=== PATIENT | female | born 1975 | race Caucasian/White ===

== ENCOUNTER 2022-10-26 07:55 | Outpatient (REF) | payer BC, SELFPAY ==
--- NOTE | ~2022-10-26 | XR_ITS ---
EXAMINATION: XR KNEE AP STANDING, BILATERAL XR KNEE, BILATERAL CLINICAL INFORMATION: Pain in left knee. COMPARISON: None TECHNIQUE: AP bilateral knee standing 1 view. 2 views each knee. FINDINGS: AP BILATERAL KNEE: There is mild reduction in the medial compartment joint space both knees with mild periarticular spurring. The lateral compartment joint space is preserved. No soft tissue swelling or bony erosive changes seen. RIGHT KNEE: The patellofemoral compartment joint space is preserved. There are no loose bodies, joint effusion or bony erosive changes. LEFT KNEE: There is small calcified density in the suprapatellar bursa likely a small loose body. There is reduced patellofemoral joint space with superior patellar spurring. No visible acute fracture or dislocation seen. XR/XR knee standing BI IMPRESSION: 1. Mild degenerative changes medial compartment both knees. 2. Small calcified loose body in the suprapatellar bursa left knee. 3. There is mild patellofemoral compartment degenerative changes left knee with superior patellar spurring.
--- NOTE | ~2022-10-26 | XR_ITS ---
EXAMINATION: XR KNEE AP STANDING, BILATERAL XR KNEE, BILATERAL CLINICAL INFORMATION: Pain in left knee. COMPARISON: None TECHNIQUE: AP bilateral knee standing 1 view. 2 views each knee. FINDINGS: AP BILATERAL KNEE: There is mild reduction in the medial compartment joint space both knees with mild periarticular spurring. The lateral compartment joint space is preserved. No soft tissue swelling or bony erosive changes seen. RIGHT KNEE: The patellofemoral compartment joint space is preserved. There are no loose bodies, joint effusion or bony erosive changes. LEFT KNEE: There is small calcified density in the suprapatellar bursa likely a small loose body. There is reduced patellofemoral joint space with superior patellar spurring. No visible acute fracture or dislocation seen. XR/XR knee LT 2V IMPRESSION: 1. Mild degenerative changes medial compartment both knees. 2. Small calcified loose body in the suprapatellar bursa left knee. 3. There is mild patellofemoral compartment degenerative changes left knee with superior patellar spurring.
--- NOTE | ~2022-10-26 | XR_ITS ---
EXAMINATION: XR KNEE AP STANDING, BILATERAL XR KNEE, BILATERAL CLINICAL INFORMATION: Pain in left knee. COMPARISON: None TECHNIQUE: AP bilateral knee standing 1 view. 2 views each knee. FINDINGS: AP BILATERAL KNEE: There is mild reduction in the medial compartment joint space both knees with mild periarticular spurring. The lateral compartment joint space is preserved. No soft tissue swelling or bony erosive changes seen. RIGHT KNEE: The patellofemoral compartment joint space is preserved. There are no loose bodies, joint effusion or bony erosive changes. LEFT KNEE: There is small calcified density in the suprapatellar bursa likely a small loose body. There is reduced patellofemoral joint space with superior patellar spurring. No visible acute fracture or dislocation seen. XR/XR knee RT 2V IMPRESSION: 1. Mild degenerative changes medial compartment both knees. 2. Small calcified loose body in the suprapatellar bursa left knee. 3. There is mild patellofemoral compartment degenerative changes left knee with superior patellar spurring.
== END 2022-10-26 07:56 | disposition home or self-care (01) ==
LOC: HO.HOSX 07:55
PROVIDERS: Visit Provider Physician Assistant
DX: M22.2X2 Patellofemoral disorders, left knee (principal); M22.2X1 Patellofemoral disorders, right knee
CPT/HCPCS: 73560; 73565

== ENCOUNTER 2022-12-28 10:00 | Outpatient (RCR) | payer BC, SELFPAY ==
--- NOTE | 2022-11-12 12:34 | MHC.PT.EP ---
[facility] [place] Office [place] Office [place] Office [address] Austen Jenkins [address] [phone] F: [phone] F: [phone] F: [phone] F: [phone] Physical Therapy Plan of Care Date of Evaluation: Date of Surgery: Diagnosis: B patellofemoral disorders Assessment: 47 y/o female referred to PT with B patellofemoral disorder. 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 Examination shows very quad dominant squat, good deadlift mechanics, L lateral patella tracking, increased B patella/knee pain with squats deeper than 40*/SLR, R knee swelling, decreased ITB/HS/quad length, and mild genu valgus. Recommend PT 1x/week for 6 weeks to address impairments, implement HEP, and optimize functional mobility. Frequency and Duration: The patient will be seen 1x/week for 6 weeks Short Term Goals: 3 weeks Compliant with HEP Demonstrate squat with improved alignement with knees to toes, but not over toes and pain < 3/10 Usp Goals: 6 weeks I with HEP and self management of sx Pt will be able to descend stairs with pain < 3/10 Quad set with normal patella tracking. Treatment Plan: Modalities to reduce pain, spasms and effusion. Manual therapy to restore motion and function. Therapeutic exercise to improve strength and flexibility. Neuromuscular re-education for posture and balance. Therapeutic activities to return to functional activities of daily living. Electronically signed by: Liya Ly PT Please sign and return to therapist. Thank you for your referral.
--- NOTE | 2022-12-28 11:04 | MHC.PT.DC ---
[facility] [place] Office [place] Office [place] Office [address] Austen Jenkins [address] [phone] F: [phone] F: [phone] F: [phone] F: [phone] Physical Therapy Discharge Report Diagnosis: B patellofemoral disorders Date of Surgery: Date of Evaluation: 11/12/22 Date of Discharge: 12/28/22 Treatments to Date: 7 Cancellations to Date: 0 No Shows to Date: 0 Discharge Status: Achieved Goals Improved Function Independent with HEP Discharge Summary: We reviewed all exercises and adaptations for less patella compression such as squats that are more glut focused with hips posterior verse knees over toes, discussed foot position with slight out-toeing for less joint compression as well. Pt reports good understanding and has been compliant with HEP and adaptation. She is appropriate for d/c at this time secondary to meeting goals and I with HEP. Electronically signed by: Liya Ly PT Please sign and return to therapist. Thank you for your referral.
== END 2022-12-28 11:04 | disposition home or self-care (01) ==
LOC: HO.PTCHIC 10:00
PROVIDERS: Visit Provider Physician Assistant
DX: M22.2X1 Patellofemoral disorders, right knee (principal); M22.2X2 Patellofemoral disorders, left knee
CPT/HCPCS: 97110; 97140; 97161; 97530

== ENCOUNTER 2024-03-15 09:08 | Emergency (ER) | payer BC, SELFPAY ==
--- NOTE | ~2024-03-15 | XR_ITS ---
EXAMINATION: RADIOGRAPH RIGHT ANKLE AND RIGHT FOOT CLINICAL INDICATION: Fall. COMPARISON: No similar priors. TECHNIQUE: 3 views of the right ankle and 3 views of the right foot. FINDINGS: Right ankle: No fractures or subluxation. Ankle mortise is maintained. No significant soft tissue abnormality. Right foot: Minimally displaced fractures at the base of the second, third and fourth metatarsals. Equivocal mild lateral displacement of the base of the second metatarsal with respect to the medial cuneiform. Irregularity along the medial surface of the navicular bone. Soft tissue swelling around the fracture sites. No unexpected radiopaque foreign bodies. XR/XR ankle RT 2V IMPRESSION: 1. Mildly displaced comminuted fractures at the base of the second, third and fourth metatarsals. 2. Equivocal Lisfranc injury with subtle lateral displacement of the second metatarsal with respect to the medial cuneiform. 3. Possible navicular fracture.
--- NOTE | ~2024-03-15 | XR_ITS ---
EXAMINATION: RADIOGRAPH RIGHT ANKLE AND RIGHT FOOT CLINICAL INDICATION: Fall. COMPARISON: No similar priors. TECHNIQUE: 3 views of the right ankle and 3 views of the right foot. FINDINGS: Right ankle: No fractures or subluxation. Ankle mortise is maintained. No significant soft tissue abnormality. Right foot: Minimally displaced fractures at the base of the second, third and fourth metatarsals. Equivocal mild lateral displacement of the base of the second metatarsal with respect to the medial cuneiform. Irregularity along the medial surface of the navicular bone. Soft tissue swelling around the fracture sites. No unexpected radiopaque foreign bodies. XR/XR foot RT 2V IMPRESSION: 1. Mildly displaced comminuted fractures at the base of the second, third and fourth metatarsals. 2. Equivocal Lisfranc injury with subtle lateral displacement of the second metatarsal with respect to the medial cuneiform. 3. Possible navicular fracture.
--- NOTE | ~2024-03-15 | XR_ITS ---
EXAMINATION: XR WRIST, RIGHT CLINICAL INFORMATION: Evaluate for fracture, fell yesterday. COMPARISON: None available. TECHNIQUE: Four views of the right wrist. FINDINGS: Minimally displaced distal dorsal radial fracture, best visualized on the lateral view. Nondisplaced scaphoid fracture at the level of the waist. No additional fractures. Soft tissue swelling around the wrist. No unexpected radiopaque foreign bodies. XR/XR wrist RT 2V IMPRESSION: 1. Minimally displaced distal dorsal radial fracture. 2. Nondisplaced scaphoid fracture.
[2024-03-15 09:16] VITALS: BP 139/75; PULSE 70; RESP 16; TEMP 36.4; O2SAT 99; BMI 24.3
--- NOTE | 2024-03-15 10:30 | ED_ITS ---
HPI - Extremity Problem General Chief complaint: Extremity Problem Stated complaint: R foot & R wrist injury Time Seen by Provider: 03/15/24 10:13 Source: patient Mode of arrival: ambulatory History of Present Illness HPI Narrative: 49-year-old female who arrives with complaints of right wrist/hand pain as well as right ankle/foot pain after falling yesterday down some stairs and hearing/feeling a pop and has noted swelling and bruising. Patient is taken combination analgesics prior to arrival. Related Data Previous Rx's ?Medication ?Instructions ?Recorded azithromycin 250 mg tablet See Rx Instructions PO .COMPLEX #6 01/14/23 tabs Allergies Allergy/AdvReac Type Severity Reaction Status Date / Time penicillin V Allergy Unknown hives Verified 03/15/24 09:17 Sulfa (Sulfonamide Allergy hives Verified 03/15/24 09:17 Antibiotics) Review of Systems Review of Systems: Pertinent positives and negatives as stated in HPI [facility] Past Medical History Source: nursing notes reviewed Social History Social History Patient Tobacco Use Status: Former Tobacco user Advance Directives: No Advance Directives Information Provided: No Do you have a plan to hurt others: No Plan Current occupational status: employed 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 GENERAL: Well developed, well nourished, in no acute distress. HEAD: Normocephalic/atraumatic EYES: PERRLA, EOMI LUNGS: Normal breath sounds. No adventitious sounds or accessory muscle use. SpO2<99> CARDIOVASCULAR: Regular rate and rhythm without noted murmurs ABDOMEN: Soft, non-tender, non-distended with bowel sounds. MUSCULOSKELETAL: No tenderness, deformities, or effusions noted on gross inspe ction. EXTREMITIES: No cyanosis, clubbing or edema. SKIN: Inspection of the skin reveals no rashes RIGHT FOOT: Ecchymosis noted to dorsal lateral aspect of the foot, no mid step tenderness to palpation, able to move toes, no medial/lateral malleolus tenderness to palpation but there is tenderness to palpation over base 5/4/3 metatarsal RIGHT HAND/WRIST: Swelling noted over snuffbox area, no snuffbox tenderness, tenderness over radius aspect of wrist. NEUROLOGIC: Alert and oriented x 4. Strength and sensation to light touch were grossly intact x 4. Medical Decision Making Medical Decision Making MDM Narrative: 49-year-old female and on review of x-ray imaging, there is fracture 4/3/2 metatarsal/possible navicular fracture/possible Lisfranc as well as scaphoid and right radius fracture. 1104: I discussed case with orthopedics who agrees with thumb spica, in addition, agrees with walking boot but nonweightbearing and given the fact that patient has right-sided fractures recommends walker with forearm support and if this is unsuccessful then wheelchair. Patient is otherwise discharged home with a referral to follow-up with orthopedics by calling the office tomorrow morning. Differential Diagnosis Differential Diagnoses: The differential diagnosis associated with the presentation includes Please see the discussion above Admission/Observation Consideration of admission/observation: Escalation of care including admission/observation considered Please see the discussion above Consult Healthcare Provider Management of the patient was discussed with: Occupational Health Manager Please see the discussion above Radiology Impression Discussion of test interpretation with radiology: I have reviewed the radiologist's reading. Radiologist Impression: Please see the discussion above Critical Care Time Critical Care Time Critical Care Time: Yes Total Critical Care Time: 30 Attestation: I personally attest to this time spent taking care of the patient. Discharge Plan Discharge Clinical Impression: Closed fracture of scaphoid of right wrist, Closed right radial fracture, Lisfranc dislocation, Multiple closed fractures of metatarsal bone of right foot, Foot, fracture, navicular Patient Disposition: Home, Self-Care Instructions: Wrist Fracture in Adults (ED), Foot Fracture in Adults (ED), Splint Care (ED), Walking Boot (ED) Additional Instructions: Combination analgesics Please call orthopedic office tomorrow morning. Prescriptions: No Action azithromycin 250 mg tablet See Rx Instructions PO .COMPLEX Qty: 6 0RF Rx Instructions: take 500 mg today (day 1), then 250 mg for 4 days (days 2-5) PO Referrals: Benoit Valdez MD [Physician] - Stand Alone Forms: Work/School Release Print Language: Maltese
[2024-03-15 11:02] VITALS: BP 144/74; PULSE 64; RESP 18; O2SAT 99
[2024-03-15 12:00] VITALS: TEMP 36.6
== END 2024-03-15 12:17 | disposition home or self-care (01) ==
PROVIDERS: Emergency Provider Student in an Organized Health Care Education/Training Program
DX: S62.001A Unspecified fracture of navicular [scaphoid] bone of right wrist, initial encounter for closed fracture (principal); S92.251A Displaced fracture of navicular [scaphoid] of right foot, initial encounter for closed fracture; S92.301A Fracture of unspecified metatarsal bone(s), right foot, initial encounter for closed fracture; S52.91XA Unspecified fracture of right forearm, initial encounter for closed fracture; S63.004A Unspecified dislocation of right wrist and hand, initial encounter; M25.531 Pain in right wrist; M79.671 Pain in right foot; M79.601 Pain in right arm; W10.9XXA Fall (on) (from) unspecified stairs and steps, initial encounter; Y93.9 Activity, unspecified; Y92.9 Unspecified place or not applicable; Y99.8 Other external cause status
CPT/HCPCS: 29130; 73100; 73600; 73620; 99283; 99284

== ENCOUNTER 2024-03-20 08:15 | Outpatient (AMB) | payer BC, SELFPAY ==
--- NOTE | 2024-03-20 08:24 | A.OFFVIS_ITS ---
Intake Visit Reasons: FC-Closed FC of scaphoid of RT wrist/right foot Intake Note: Gay is a 49 year old 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 female who presents today for a evaluation of her right wrist injury, DOI 03/14/24. Patient reports that she feel coming down the stairs and she heard a popping sound in her right hand. She has noted swelling and bruising. Currently still having ongoing pain in her wrist. Denies numbness and tingling her fingers. Allergies penicillin V Allergy (Unknown, Verified 03/20/24 08:25) hives Sulfa (Sulfonamide Antibiotics) Allergy (Verified 03/20/24 08:25) hives HPI HPI FC-Closed FC of scaphoid of RT wrist/right foot: Details: 49-year-old 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 female who presents to the office today for evaluation of right wrist and right foot injury after a fall downstairs and hearing a pop in her right hand, 03/14/24. She noticed swelling and bruising as well as ongoing pain in her wrist. She denies any numbness or tingling in her fingers. She also reports pain in her right foot and has been wearing a boot with benefits. 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 No open wound or abrasions. She is able make a full fist and extend all digits. No discomfort along the scaphoid region of the hand. NVI. Right wrist: Skin intact. There is no swelling, mild bruising over the distal radius with mild tenderness over the fracture site. There is no pain over the elbow, negative forearm squeeze test. She has full range of motion of the elbow. She can fully extend all digits and make a closed fist.? Pulses are present and she is neurovascularly intact. Right foot: Skin intact.? There is some bruising over the base of the metatarsals of the right foot.? Mild pain over the navucular bone. There is no tenderness at the base of the 5th metatarsal. Sensation intact.? EHL intact.? No pain along the mediolateral malleolus.? Neurovascularly intact.?? Office Procedures Casting/Splints 45049-Sqlt/Wrist Cast Application Procedure code (CPT) selection complete Fracture Care Fracture Billing Code: Fracture Billing Code Results Reviewed Results Reviewed: XR right foot and right wrist w scaphoid 03/15/24 IMPRESSION: 1. Mildly displaced comminuted fractures at the base of the second, third and fourth metatarsals. 2. Equivocal Lisfranc injury with subtle lateral displacement of the second metatarsal with respect to the medial cuneiform. 3. Possible navicular fracture. Assessment & Plan Assessment & Plan (1) Closed fracture of scaphoid of right wrist: Code(s): S62.001A - Unspecified fracture of navicular [scaphoid] bone of right wrist, initial encounter for closed fracture Category: Medical Qualifiers: Encounter type: initial encounter Scaphoid bone location: unspecified portion of scaphoid Fracture alignment: nondisplaced Qualified Code(s): S62.001A - Unspecified fracture of navicular [scaphoid] bone of right wrist, initial encounter for closed fracture (2) Foot, fracture, navicular: Code(s): S92.253A - Displaced fracture of navicular [scaphoid] of unspecified foot, initial encounter for closed fracture Category: Medical Qualifiers: Encounter type: initial encounter Fracture type: closed Fracture alignment: nondisplaced Laterality: right Qualified Code(s): S92.254A - Nondisplaced fracture of navicular [scaphoid] of right foot, initial encounter for closed fracture (3) Distal radius fracture, right: Code(s): S52.501A - Unspecified fracture of the lower end of right radius, initial encounter for closed fracture Category: Medical Qualifiers: Encounter type: initial encounter Fracture type: closed Fracture morphology: unspecified fracture morphology Qualified Code(s): S52.501A - Unspecified fracture of the lower end of right radius, initial encounter for closed fracture (4) Lisfranc's sprain: Code(s): S93.629A - Sprain of tarsometatarsal ligament of unspecified foot, initial encounter Category: Medical Qualifiers: Encounter type: initial encounter Laterality: right Qualified Code(s): S93.621A - Sprain of tarsometatarsal ligament of right foot, initial encounter (5) Fracture of metatarsal of right foot, closed: Code(s): S92.301A - Fracture of unspecified metatarsal bone(s), right foot, initial encounter for closed fracture Category: Medical Qualifiers: Encounter type: initial encounter Metatarsal bone: unspecified metatarsal Fracture alignment: nondisplaced Qualified Code(s): S92.301A - Fracture of unspecified metatarsal bone(s), right foot, initial encounter for closed fracture Plan For her right wrist, she will be placed in a thumb spica cast. She will avoid any type of lifting, pushing, pulling or carrying greater than a cellphone. I would like to see her back in 1 week with cast off, x-rays to reevaluate the scaphoid. For the right foot, she will continue with her short boot. She will weight bear as tolerated. I did explain to her that the healing takes about 4-6 to fully recover. She will remove the boot for hygiene and resting. She will see me back in 4-6 weeks for repeat x-rays of the right foot, sooner if needed. Patient Instructions: Scribed for Denisse Junior PA-C, by Dawood Guido medical staff assistant, on 03/20/2024 at 8:15 AM EST.? I, Denisse Junior PA-C, have personally reviewed and agree with the information entered by the scribe. Coding Level of Care Code Est Pt Level 4 (56340) Diagnoses Closed nondisplaced fracture of scaphoid of right wrist, unspecified portion of scaphoid, initial encounter S62.001A Encounter type: initial encounter Scaphoid bone location: unspecified portion of scaphoid Fracture alignment: nondisplaced Closed nondisplaced fracture of navicular bone of right foot, initial encounter S92.254A Encounter type: initial encounter Fracture type: closed Fracture alignment: nondisplaced Laterality: right Closed fracture of distal end of right radius, unspecified fracture morphology, initial encounter S52.501A Encounter type: initial encounter Fracture type: closed Fracture morphology: unspecified fracture morphology Sprain of ligament of tarsometatarsal joint of right foot, initial encounter S93.621A Encounter type: initial encounter Laterality: right Closed nondisplaced fracture of metatarsal bone of right foot, unspecified metatarsal, initial encounter S92.301A Encounter type: initial encounter Metatarsal bone: unspecified metatarsal Fracture alignment: nondisplaced CPT Codes Casting - CPT: 41051-Xzyd/Wrist Cast Application ([id number]) Fracture Care - Fracture Billing Code: Fracture Billing Code ([id number])
== END 2024-03-20 09:05 | disposition home or self-care (01) ==
PROVIDERS: Visit Provider Physician Assistant
DX: S62.001A Unspecified fracture of navicular [scaphoid] bone of right wrist, initial encounter for closed fracture (principal); S92.254A Nondisplaced fracture of navicular [scaphoid] of right foot, initial encounter for closed fracture; S52.501A Unspecified fracture of the lower end of right radius, initial encounter for closed fracture; S93.621A Sprain of tarsometatarsal ligament of right foot, initial encounter; S92.301A Fracture of unspecified metatarsal bone(s), right foot, initial encounter for closed fracture
CPT/HCPCS: 25622; 99214

== ENCOUNTER → 2024-03-20 08:15 | Outpatient (BNVA) | payer BC, SELFPAY | PROVIDERS: Visit Provider Physician Assistant | DX: S62.001A Unspecified fracture of navicular [scaphoid] bone of right wrist, initial encounter for closed fracture (principal); S52.501A Unspecified fracture of the lower end of right radius, initial encounter for closed fracture; S92.254A Nondisplaced fracture of navicular [scaphoid] of right foot, initial encounter for closed fracture; S92.321A Displaced fracture of second metatarsal bone, right foot, initial encounter for closed fracture; S92.331A Displaced fracture of third metatarsal bone, right foot, initial encounter for closed fracture; S92.341A Displaced fracture of fourth metatarsal bone, right foot, initial encounter for closed fracture; S93.621A Sprain of tarsometatarsal ligament of right foot, initial encounter | CPT/HCPCS: 25622 ==

== ENCOUNTER 2024-03-27 12:36 | Outpatient (REF) | payer BC, SELFPAY ==
--- NOTE | ~2024-03-27 | XR_ITS ---
EXAMINATION: XR RIGHT WRIST CLINICAL INFORMATION: Pain in right hand, cast off. COMPARISON: 03/15/2024. TECHNIQUE: 4 views of the right wrist. FINDINGS: Redemonstration of minimally displaced distal dorsal radial fracture. Fracture appears to extend to the distal articular surface. Increased sclerosis along the radial aspect of the waist of the scaphoid at the site of previously identified nondisplaced scaphoid fracture at the level of the waist. Soft tissue swelling at the wrist. XR/XR wrist RT w scaphoid IMPRESSION: 1. Redemonstration of minimally displaced distal dorsal radial fracture. Fracture appears to extend to the distal articular surface. 2. Increased sclerosis along the radial aspect of the waist of the scaphoid at the site of previously identified nondisplaced scaphoid fracture at the level of the waist.
== END 2024-03-27 12:37 | disposition home or self-care (01) ==
LOC: HO.HOSX 12:36
PROVIDERS: Visit Provider Physician Assistant
DX: S62.001D Unspecified fracture of navicular [scaphoid] bone of right wrist, subsequent encounter for fracture with routine healing (principal); S93.621D Sprain of tarsometatarsal ligament of right foot, subsequent encounter; S92.301D Fracture of unspecified metatarsal bone(s), right foot, subsequent encounter for fracture with routine healing
CPT/HCPCS: 29085; 73110

== ENCOUNTER 2024-03-27 13:56 | Outpatient (AMB) | payer BC, SELFPAY ==
[2024-03-27 14:05] VITALS: BMI 24.3
--- NOTE | 2024-03-27 14:05 | MHC.OFFVIS ---
Vital Signs 03/27/24 14:05 Height 5 ft 8 in Weight 160 lb BMI 24.3 Intake Visit Reasons: OV-f/u Rt wrist/scaphoid fx cast off w xrays Intake Note: Gay a 49 year old female who presents today for a follow up of right scaphoid fracture, DOI 03/14/24. Patient reports she is doing well, states discomfort in her wrist with removal of cast. Allergies penicillin V Allergy (Unknown, Verified 03/27/24 14:12) hives Sulfa (Sulfonamide Antibiotics) Allergy (Verified 03/27/24 14:12) hives HPI HPI OV-f/u Rt wrist/scaphoid fx cast off w xrays: Details: 49-year-old female who returns to the office today for a follow-up of right wrist fracture, 03/14/24. She states she has discomfort in her wrist with removal of cast however she is doing well otherwise. She has no other concerns today. 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 No open wound or abrasions. She is able make a full fist and extend all digits. trace discomfort along the scaphoid region of the hand. NVI. Right wrist: Skin intact. There is no swelling, mild bruising over the distal radius with mild tenderness over the fracture site. There is no pain over the elbow, negative forearm squeeze test. She has full range of motion of the elbow. She can fully extend all digits and make a closed fist.? Pulses are present and she is neurovascularly intact. Office Procedures Casting/Splints 33000-Lmvu/Wrist Cast Application Procedure code (CPT) selection complete Results Reviewed Results Reviewed: Xrays were obtained in the office today and personally reviewed by me of the right wrist w scaphoid show non displaced scaphoid fx Assessment & Plan Assessment & Plan (1) Lisfranc's sprain: Code(s): S93.629A - Sprain of tarsometatarsal ligament of unspecified foot, initial encounter Category: Medical Qualifiers: Encounter type: initial encounter Laterality: right Qualified Code(s): S93.621A - Sprain of tarsometatarsal ligament of right foot, initial encounter (2) Fracture of metatarsal of right foot, closed: Code(s): S92.301A - Fracture of unspecified metatarsal bone(s), right foot, initial encounter for closed fracture Category: Medical Qualifiers: Encounter type: initial encounter Metatarsal bone: unspecified metatarsal Fracture alignment: nondisplaced Qualified Code(s): S92.301A - Fracture of unspecified metatarsal bone(s), right foot, initial encounter for closed fracture (3) Fracture of scaphoid bone of right wrist: Code(s): S62.001A - Unspecified fracture of navicular [scaphoid] bone of right wrist, initial encounter for closed fracture Category: Medical Qualifiers: Encounter type: initial encounter Scaphoid bone location: unspecified portion of scaphoid Fracture type: closed Fracture alignment: nondisplaced Qualified Code(s): S62.001A - Unspecified fracture of navicular [scaphoid] bone of right wrist, initial encounter for closed fracture Plan She was placed in a thumb spica cast which she will wear for 6 weeks. I did educate her on a course of healing and that it typically takes about 3 months. She will avoid any type of lifting, pushing, pulling or carrying greater than a cellphone with her right hand. I would like to see her back in 6 weeks with cast off and new x-rays, sooner if needed. She will remain out of work till then. For her right foot, an MRI was ordered to further evaluate the ligamentous structures given the continued discomfort she has with ambulation. Once this is obtained, she will see us back to review and discuss the results. Orders: Orders XR wrist RT w scaphoid 03/27/24 M79.641 - Pain in right hand MR foot RT wo con 03/27/24 S93.621A - Sprain of tarsometatarsal ligament of right foot, initial encounter Patient Instructions: Scribed for Denisse Junior PA-C, by Dawood Guido medical transcription radiology, on 03/27/2024 at 2:00 PM EST.? I, Denisse Junior PA-C, have personally reviewed and agree with the information entered by the scribe. Coding Level of Care Code Global (28364) Diagnoses Sprain of ligament of tarsometatarsal joint of right foot, initial encounter S93.621A Encounter type: initial encounter Laterality: right Closed nondisplaced fracture of metatarsal bone of right foot, unspecified metatarsal, initial encounter S92.301A Encounter type: initial encounter Metatarsal bone: unspecified metatarsal Fracture alignment: nondisplaced Closed nondisplaced fracture of scaphoid of right wrist, unspecified portion of scaphoid, initial encounter S62.001A Encounter type: initial encounter Scaphoid bone location: unspecified portion of scaphoid Fracture type: closed Fracture alignment: nondisplaced CPT Codes Casting - CPT: 53523-Wtam/Wrist Cast Application ([id number])
== END 2024-03-27 14:51 | disposition home or self-care (01) ==
PROVIDERS: Visit Provider Physician Assistant
DX: S93.621A Sprain of tarsometatarsal ligament of right foot, initial encounter (principal); S92.301A Fracture of unspecified metatarsal bone(s), right foot, initial encounter for closed fracture; S62.001A Unspecified fracture of navicular [scaphoid] bone of right wrist, initial encounter for closed fracture
CPT/HCPCS: 29085; 99024

== ENCOUNTER 2024-04-08 13:45 | Outpatient (AMB) | payer BC, SELFPAY ==
--- NOTE | 2024-04-08 14:02 | A.OFFVIS_ITS ---
Intake Visit Reasons: OV- rt wrist fx - cast change Intake Note: Gay a 49 year old female who presents today for a follow up of right scaphoid fracture, DOI 03/14/24. Patient reports her cast became dirty and is requesting a cast change. Allergies penicillin V Allergy (Unknown, Verified 04/08/24 15:52) hives Sulfa (Sulfonamide Antibiotics) Allergy (Verified 04/08/24 15:52) hives Medication List - Last Reconciled 04/08/24 by Denisse Junior PA-C tramadol 50 mg PO BEDTIME 7 days walker Walker with RIGHT forearm support HPI HPI OV- rt wrist fx - cast change: Details: 49-year-old female who returns from the office today for a follow-up of right wrist fracture, 03/14/24. She presents today for a cast change as her cast got dirty. She denies any pain in her foot. She has no concerns. 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 She has mild tenderness over the distal radius and scaffold lunate. NVI. Office Procedures Casting/Splints 62366-Zalw/Wrist Cast Application Procedure code (CPT) selection complete Assessment & Plan Assessment & Plan (1) Lisfranc's sprain: Code(s): S93.629A - Sprain of tarsometatarsal ligament of unspecified foot, initial encounter Category: Medical Qualifiers: Encounter type: initial encounter Laterality: right Qualified Code(s): S93.621A - Sprain of tarsometatarsal ligament of right foot, initial encounter (2) Fracture of metatarsal of right foot, closed: Code(s): S92.301A - Fracture of unspecified metatarsal bone(s), right foot, initial encounter for closed fracture Category: Medical Qualifiers: Encounter type: initial encounter Fracture alignment: nondisplaced Metatarsal bone: unspecified metatarsal Qualified Code(s): S92.301A - Fracture of unspecified metatarsal bone(s), right foot, initial encounter for closed fracture (3) Fracture of scaphoid bone of right wrist: Code(s): S62.001A - Unspecified fracture of navicular [scaphoid] bone of right wrist, initial encounter for closed fracture Category: Medical Qualifiers: Encounter type: initial encounter Fracture alignment: nondisplaced Fracture type: closed Scaphoid bone location: unspecified portion of scaphoid Qualified Code(s): S62.001A - Unspecified fracture of navicular [scaphoid] bone of right wrist, initial encounter for closed fracture Plan She was placed back in a short arm thumb spica cast. I will see her back on her scheduled postop appointment, sooner if needed. Patient Instructions: Scribed for Denisse Junior PA-C, by Dawood Guido expert medical writer, on 04/08/2024 at 1:30 PM EST.? I, Denisse Junior PA-C, have personally reviewed and agree with the information entered by the scribe. Coding Level of Care Code Global (02454) Diagnoses Sprain of ligament of tarsometatarsal joint of right foot, initial encounter S93.621A Encounter type: initial encounter Laterality: right Closed nondisplaced fracture of metatarsal bone of right foot, unspecified metatarsal, initial encounter S92.301A Encounter type: initial encounter Fracture alignment: nondisplaced Metatarsal bone: unspecified metatarsal Closed nondisplaced fracture of scaphoid of right wrist, unspecified portion of scaphoid, initial encounter S62.001A Encounter type: initial encounter Fracture alignment: nondisplaced Fracture type: closed Scaphoid bone location: unspecified portion of scaphoid CPT Codes Casting - CPT: 44034-Fwyz/Wrist Cast Application ([id number])
== END 2024-04-08 16:08 | disposition home or self-care (01) ==
PROVIDERS: Visit Provider Physician Assistant
DX: S93.621A Sprain of tarsometatarsal ligament of right foot, initial encounter (principal); S92.301A Fracture of unspecified metatarsal bone(s), right foot, initial encounter for closed fracture; S62.001A Unspecified fracture of navicular [scaphoid] bone of right wrist, initial encounter for closed fracture
CPT/HCPCS: 29075; 99024

== ENCOUNTER → 2024-04-08 13:45 | Outpatient (BNVA) | payer BC, SELFPAY | PROVIDERS: Visit Provider Physician Assistant | DX: S62.001D Unspecified fracture of navicular [scaphoid] bone of right wrist, subsequent encounter for fracture with routine healing (principal); S93.621D Sprain of tarsometatarsal ligament of right foot, subsequent encounter; S92.301D Fracture of unspecified metatarsal bone(s), right foot, subsequent encounter for fracture with routine healing; Z46.89 Encounter for fitting and adjustment of other specified devices; X58.XXXD Exposure to other specified factors, subsequent encounter | CPT/HCPCS: 29075 ==

== ENCOUNTER 2024-04-20 18:51 | Outpatient (REF) | payer BC, SELFPAY ==
--- NOTE | ~2024-04-20 | MR_ITS ---
EXAMINATION: MR FOOT WITHOUT CONTRAST, RIGHT CLINICAL INFORMATION: Right foot pain and swelling. Injury with stairs. Question Lisfranc injury. COMPARISON: Right foot and ankle radiographs dated 03/15/2024. TECHNIQUE: Multisequence MR imaging of the right foot was obtained without contrast on a high-field strength scanner. FINDINGS: BONE AND ARTICULAR CARTILAGE: Prominent focal marrow edema at the lateral aspect of the first metatarsal base with more mild marrow edema at the adjacent lateral aspect of the medial cuneiform. No discrete fracture line; however, bony detail limited on MR examination. Comminuted fractures through the base of the second metatarsal with oblique fracture lines contacting the central aspect of the second tarsometatarsal articular surface. A proximal fracture is in the region of the Lisfranc ligament insertion, which is heterogeneous and attenuated, consistent with acute grade 2 sprain/partial tear. The fracture gap appears to measure up to 0.4 cm in greatest dimension. Prominent associated marrow edema. More mild marrow edema within the medial cuneiform without a definite fracture line. Mildly displaced, oblique fracture through the medial/plantar base of the third metatarsal with cortical step off appearing to measure up to 0.3 cm and the fracture line contacting the third tarsometatarsal articular surface. Nondisplaced, oblique fracture through the base of the fourth metatarsal with extension to the central aspect of the fourth tarsometatarsal articular surface. No significant cortical step off. Patchy marrow edema within the cuboid, consistent with osseous contusions. First metatarsophalangeal articular cartilage thinning with small marginal osteophytes. Similar findings of the hallux sesamoids. No concerning lytic or blastic osseous lesion. TENDONS: The visualized flexor and extensor tendons are intact. No transverse tendon tear or tendon retraction. LIGAMENTS: Attenuation and increased T2 signal throughout the Lisfranc ligament consistent with acute grade 2 sprain/partial tear. Intact plantar plates. JOINT FLUID AND SOFT TISSUES: Prominent dorsal subcutaneous edema. Circumferential soft tissue edema adjacent to the metatarsal fractures. No soft tissue mass or organized fluid collection. No forefoot neuroma. PLANTAR FASCIA: The distal plantar fascia is intact. No measurable tear. MR/MR foot RT wo con IMPRESSION: 1. Comminuted and displaced fractures through the bases of the second and third metatarsals contacting the tarsometatarsal joints with a nondisplaced, comminuted fracture the base of the fourth metatarsal. Additional areas of patchy marrow edema within the base of the first metatarsal as well as the cuneiforms and cuboid without additional fracture line. Bone detail limited on MR examination. 2. Acute grade 2 sprain/partial tear of the Lisfranc ligament. 3. Prominent dorsal subcutaneous edema. No soft tissue mass or organized fluid collection. 4. 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
== END 2024-04-20 18:52 | disposition home or self-care (01) ==
LOC: HO.MRI 18:51
PROVIDERS: Visit Provider Physician Assistant
DX: S93.621A Sprain of tarsometatarsal ligament of right foot, initial encounter (principal)
CPT/HCPCS: 73718

== ENCOUNTER 2024-05-08 08:30 | Outpatient (REF) | payer BC, SELFPAY ==
--- NOTE | ~2024-05-08 | XR_ITS ---
EXAMINATION: XR RIGHT WRIST CLINICAL INFORMATION: Pain in right hand, cast off. COMPARISON: Right wrist radiograph 03/27/2024 TECHNIQUE: 4 views of the right wrist. FINDINGS: Minimally displaced distal dorsal radius fracture line is slightly less conspicuous suggesting interval healing. Again noted increased sclerosis along the radial aspect of the waist of the scaphoid at the site of the previously identified nondisplaced fracture. No new fractures identified. Minimal soft tissue swelling of the wrist XR/XR wrist RT w scaphoid IMPRESSION: 1. Interval healing of minimally displaced distal dorsal radius fracture with slightly less conspicuous fracture line 2. Redemonstrated increased sclerosis along the radial aspect of the waist of the scaphoid at the site of previously identified nondisplaced fracture.
--- NOTE | ~2024-05-08 | XR_ITS ---
EXAMINATION: XR FOOT, RIGHT CLINICAL INFORMATION: Displaced fracture, second and third metatarsal bones right foot. COMPARISON: MR April 20, 2024, x-ray March 15, 2024. TECHNIQUE: AP, lateral, and oblique views of the right foot. FINDINGS: Moderate degenerative changes first metatarsophalangeal joint. Comminuted, displaced fractures through the bases of the second and third metatarsals and nondisplaced, comminuted fracture of the base of the fourth metatarsal were better characterized on MRI of April 20, 2024. Fracture lines are less conspicuous, suggesting some interval bony bridging callus formation. There is adjacent soft tissue swelling. Previously described irregularity along the medial surface of the navicular bone is difficult to assess on the current exam due to overlapping bony structures. XR/XR foot RT min 3V IMPRESSION: 1. Comminuted, displaced fractures through the bases of the second and third metatarsals and nondisplaced, comminuted fracture of the base of the fourth metatarsal were better characterized on MRI of April 20, 2024. Fracture lines are less conspicuous, suggesting some interval bony bridging callus formation. 2. Previously described irregularity along the medial surface of the navicular bone is difficult to assess on the current exam due to overlapping bony structures.
== END 2024-05-08 08:31 | disposition home or self-care (01) ==
LOC: HO.HOSX 08:30
PROVIDERS: Visit Provider Physician Assistant
DX: S62.001D Unspecified fracture of navicular [scaphoid] bone of right wrist, subsequent encounter for fracture with routine healing (principal); S93.621D Sprain of tarsometatarsal ligament of right foot, subsequent encounter; S93.601D Unspecified sprain of right foot, subsequent encounter
CPT/HCPCS: 29085; 73110; 73630

== ENCOUNTER 2024-05-08 11:08 | Outpatient (AMB) | payer BC, SELFPAY ==
--- NOTE | 2024-05-08 11:42 | A.OFFVIS_ITS ---
Vital Signs 05/08/24 11:46 Height 5 ft 8 in Weight 170 lb BMI 25.8 Handedness Right Intake Visit Reasons: OV-f/u Rt wrist/scaphoid fx cast off w xrays Intake Note: Gay is a 49 year old 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 female who presents today for a follow up of right scaphoid fracture, DOI 03/14/24. Xrays updated and cast removed. Patient reports her right hand feels like it is doing okay, certain range of motion does cause her discomfort but otherwise no concerns. Denies numbness and tingling. Allergies penicillin V Allergy (Unknown, Verified 05/08/24 11:48) hives Sulfa (Sulfonamide Antibiotics) Allergy (Verified 05/08/24 11:48) hives HPI HPI OV-f/u Rt wrist/scaphoid fx cast off w xrays: Details: 49-year-old 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 female who returns to the office today for a follow-up of right wrist fracture, 03/14/24. She reports she has improvement in her symptoms however she does experiences discomfort with ROM. She denies any numbness or tingling. 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 She has mild tenderness over the distal radius and scaffold lunate. NVI. Right wrist: Skin intact. There is no swelling or bruising over the distal radius with mild tenderness over the fracture site. There is no pain over the elbow, negative forearm squeeze test. She has full range of motion of the elbow. She can fully extend all digits and make a closed fist.? Pulses are present and she is neurovascularly intact. Office Procedures Casting/Splints 54920-Ncoj/Wrist Cast Application Procedure code (CPT) selection complete Results Reviewed Results Reviewed: Xrays were obtained in the office today and personally reviewed by me of the right wrist w scaphoid show non displaced scaphoid fx with interval healing Xrays were obtained in the office today and personally reviewed by me of the right foot show stable fx pattern Assessment & Plan Assessment & Plan (1) Mai's sprain: Code(s): S93.629A - Sprain of tarsometatarsal ligament of unspecified foot, initial encounter Category: Medical Qualifiers: Encounter type: subsequent encounter Laterality: right Qualified Code(s): S93.621D - Sprain of tarsometatarsal ligament of right foot, subsequent encounter (2) Right foot sprain: Code(s): S93.601A - Unspecified sprain of right foot, initial encounter Category: Medical Qualifiers: Encounter type: subsequent encounter Qualified Code(s): S93.601D - Uns pecified sprain of right foot, subsequent encounter Plan For her right foot, she will transition to regular street shoe at home in a controlled environment and wear the boot when she is out weight bearing as tolerated. She will begin a course of physical therapy to work on ROM and strength training. For her right wrist she was placed back in a short arm thumb spica cast which she will wear for 6 weeks until she has full healing of the scaphoid fracture. She will avoid lifting objects more than a cellphone. I would like to see her ba ck in 6 weeks with x-rays of her right wrist with scaphoid, sooner if needed. Orders: Orders PT Evaluation and Treatment Today S93.601A - Unspecified sprain of right foot, initial encounter, S93.621A - Sprain of tarsometatarsal ligament of right foot, initial encounter XR foot RT min 3V Today S92.351A - Displaced fracture of fifth metatarsal bone, right foot, initial encounter for closed fracture XR wrist RT w scaphoid Today M79.641 - Pain in right hand Patient Instructions: Scribed for Denisse Junior PA-C, by Dawood Guido medical administrative specialist, on 05/08/2024 at 11:15 AM EST.? I, Denisse Junior PA-C, have personally reviewed and agree with the information entered by the scribe. Coding Level of Care Code Global (77932) Diagnoses Sprain of ligament of tarsometatarsal joint of right foot, subsequent encounter S93.621D Encounter type: subsequent encounter Laterality: right Sprain of right foot, subsequent encounter S93.601D Encounter type: subsequent encounter CPT Codes Casting - CPT: 15456-Oihw/Wrist Cast Application ([id number])
[2024-05-08 11:46] VITALS: BMI 25.8
== END 2024-05-08 12:27 | disposition home or self-care (01) ==
PROVIDERS: Visit Provider Physician Assistant
DX: S62.001D Unspecified fracture of navicular [scaphoid] bone of right wrist, subsequent encounter for fracture with routine healing (principal); S93.601D Unspecified sprain of right foot, subsequent encounter
CPT/HCPCS: 29085; 99024

== ENCOUNTER 2024-06-01 09:35 | Outpatient (REF) | payer BC, SELFPAY ==
--- NOTE | ~2024-06-01 | XR_ITS ---
EXAMINATION: Right wrist x-rays CLINICAL INFORMATION: Pain in the right hand COMPARISON: Multiple prior radiographs most recent 05/08/2024 TECHNIQUE: 3 views of the right wrist FINDINGS: Horizontal linear sclerosis along the distal radius in the area the previously noted fracture. Fracture slightly less conspicuous compared to prior. Findings compatible with continued distal radius fracture healing. Scaphoid: Sclerosis noted along the waist of the scaphoid compatible with a bone island. Fracture line not visualized. Remaining bone and joints unremarkable. XR/XR wrist RT w scaphoid IMPRESSION: RIGHT WRIST: Continued healing of distal radius fracture.
== END 2024-06-01 09:36 | disposition home or self-care (01) ==
LOC: HO.HOSX 09:35
PROVIDERS: Visit Provider Physician Assistant
DX: S92.001D Unspecified fracture of right calcaneus, subsequent encounter for fracture with routine healing (principal)
CPT/HCPCS: 29085; 73110

== ENCOUNTER 2024-06-01 11:17 | Outpatient (AMB) | payer BC, SELFPAY ==
--- NOTE | 2024-06-01 11:40 | MHC.OFFVIS ---
Vital Signs 06/01/24 11:43 Height 5 ft 8 in Weight 170 lb BMI 25.8 Intake Visit Reasons: OV- Rt wrist/scaphoid fx cast change Allergies penicillin V Allergy (Unknown, Verified 05/08/24 11:48) hives Sulfa (Sulfonamide Antibiotics) Allergy (Verified 05/08/24 11:48) hives HPI HPI OV- Rt wrist/scaphoid fx cast change: Details: Gay is a 49-year-old female who presents today for a right wrist/scaphoid fracture. She is here for a cast change. She states she is doing well. 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 Review of Systems Const All systems reviewed & are unremarkable except as noted in HPI and below Physical Exam Vital Signs: BMI result Body Mass Index 25.8 Const General: cooperative, healthy appearing, comfortable and no acute distress Orientation/consciousness: patient oriented x3 Neck Neck: Yes normal visual inspection and Yes no JVD Chest Chest palpation & inspection: normal inspection of the chest Resp Effort & Inspection: normal respiratory effort Auscultation: clear to auscultation bilaterally, crackles (no), rales (no), rhonchi (no) and wheezes (no) Cardio Jugular venous distension: no JVD Rate: regular rate Rhythm: regular rhythm Heart sounds: S1 normal heart sound present, S2 normal heart sound present, Murmur heart sound present (no) and Rub heart sound present (no) Neuro General: patient oriented x3 Extrem Other: Right wrist: Normal to inspection. She has mild tenderness over the distal radius and scaffold lunate. NVI. Right wrist: Skin intact. There is no swelling or bruising over the distal radius with mild tenderness over the fracture site. There is no pain over the elbow, negative forearm squeeze test. She has full range of motion of the elbow. She can fully extend all digits and make a closed fist.? Pulses are present and she is neurovascularly intact. General: Yes normal to inspection, Yes no pedal edema and Yes no calf tenderness Office Procedures Casting/Splints 20631-Lxia/Wrist Cast Application Procedure code (CPT) selection complete Assessment & Plan Assessment & Plan (1) Fracture of scaphoid bone of right wrist: Code(s): S62.001A - Unspecified fracture of navicular [scaphoid] bone of right wrist, initial encounter for closed fracture Category: Medical Qualifiers: Encounter type: initial encounter Scaphoid bone location: unspecified portion of scaphoid Fracture type: closed Fracture alignment: nondisplaced Qualified Code(s): S62.001A - Unspecified fracture of navicular [scaphoid] bone of right wrist, initial encounter for closed fracture Plan She was placed back in a short arm thumb Spica cast. Advised her to not lifting more than a cell phone. She will see us back at her routine scheduled appointment. Orders: Orders XR wrist RT w scaphoid Today M79.641 - Pain in right hand Patient Instructions: Scribed for Denisse Junior PA-C, by Renea Reina medical parasitologist, on 06/01/2024 at 11:30 AM EST. IDenisse PA-C, have personally reviewed and agree with the information entered by the scribe. Coding Level of Care Code Global (46444) Diagnoses Closed nondisplaced fracture of scaphoid of right wrist, unspecified portion of scaphoid, initial encounter S62.001A Encounter type: initial encounter Scaphoid bone location: unspecified portion of scaphoid Fracture type: closed Fracture alignment: nondisplaced CPT Codes Casting - CPT: 54053-Wqbk/Wrist Cast Application ([id number])
[2024-06-01 11:43] VITALS: BMI 25.8
== END 2024-06-01 13:39 | disposition home or self-care (01) ==
PROVIDERS: Visit Provider Physician Assistant
DX: S62.001A Unspecified fracture of navicular [scaphoid] bone of right wrist, initial encounter for closed fracture (principal)
CPT/HCPCS: 29085; 99024

== ENCOUNTER 2024-06-18 12:33 | Outpatient (REF) | payer BC, SELFPAY ==
--- NOTE | ~2024-06-18 | XR_ITS ---
EXAMINATION: XR WRIST, RIGHT CLINICAL INFORMATION: Pain right hand, cast off. COMPARISON: 05/02/2024, 06/01/2024. TECHNIQUE: Four views of the right wrist. FINDINGS: Redemonstration of sclerosis along the waist of the scaphoid characteristic of a bone island. Discrete fracture line is not appreciated. Redemonstration of healing minimally displaced distal radial fracture. Fracture line is still visible, but less conspicuous. XR/XR wrist RT w scaphoid IMPRESSION: 1. Healing distal radial fracture. 2. Redemonstration of sclerosis along the waist of the scaphoid characteristic of a bone island. Discrete fracture line is not appreciated. Electronically signed by: Malini Ortiz MD 07/15/2024 10:38 AM EDT
== END 2024-06-18 12:34 | disposition home or self-care (01) ==
LOC: HO.HOSX 12:33
PROVIDERS: Visit Provider Physician Assistant
DX: M79.641 Pain in right hand (principal)
CPT/HCPCS: 73110

== ENCOUNTER 2024-06-18 12:43 | Outpatient (AMB) | payer BC, SELFPAY ==
--- NOTE | 2024-06-18 12:47 | A.OFFVIS_ITS ---
Intake Visit Reasons: OV-6 wk f/u Rt wrist/scaphoid fx cast off w xrays Intake Note: Gay is a 49 year old female who presents today for a follow up of right scaphoid fracture, DOI 03/14/24. Cast off and xrays updated. Patient reports she is doing well, denies any pain. States no concerns today. Allergies penicillin V Allergy (Unknown, Verified 06/18/24 12:49) hives Sulfa (Sulfonamide Antibiotics) Allergy (Verified 06/18/24 12:49) hives Medication List - Last Reconciled 06/18/24 by Denisse Junior PA-C No Known Home Meds HPI HPI OV-6 wk f/u Rt wrist/scaphoid fx cast off w xrays: Details: 49-year-old female who returns to the office today for a follow-up of right wrist fracture, 03/14/24. She states she has no pain and is doing well overall. She has no concerns today. 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 Review of Systems Const All systems reviewed & are unremarkable except as noted in HPI and below Physical Exam Const General: cooperative, healthy appearing, comfortable and no acute distress Orientation/consciousness: patient oriented x3 Neck Neck: Yes normal visual inspection and Yes no JVD Chest Chest palpation & inspection: normal inspection of the chest Resp Effort & Inspection: normal respiratory effort Auscultation: clear to auscultation bilaterally, crackles (no), rales (no), rhonchi (no) and wheezes (no) Cardio Jugular venous distension: no JVD Rate: regular rate Rhythm: regular rhythm Heart sounds: S1 normal heart sound present, S2 normal heart sound present, Murmur heart sound present (no) and Rub heart sound present (no) Neuro General: patient oriented x3 Extrem Other: Right wrist: Skin intact. There is no swelling or bruising over the distal radius with no tenderness over the fracture site. There is no pain over the elbow, negative forearm squeeze test. She has full range of motion of the elbow. She can fully extend all digits and make a closed fist.? Pulses are present and she is neurovascularly intact. General: Yes normal to inspection, Yes no pedal edema and Yes no calf tenderness Results Reviewed Results Reviewed: Xrays were obtained in the office today and personally reviewed by me of the right wrist w scaphoid show non displaced scaphoid fx with interval healing Assessment & Plan Assessment & Plan (1) Fracture of scaphoid bone of right wrist: Code(s): S62.001A - Unspecified fracture of navicular [scaphoid] bone of right wrist, initial encounter for closed fracture Category: Medical Qualifiers: Encounter type: initial encounter Fracture alignment: nondisplaced Fracture type: closed Scaphoid bone location: unspecified portion of scaphoid Qualified Code(s): S62.001A - Unspecified fracture of navicular [scaphoid] bone of right wrist, initial encounter for closed fracture Plan She was transitioned to a Velcro thumb spica splint which she will wear with activities only. She will avoid lifting anything more than a cellphone. 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 She will see me back as needed. Orders: Orders XR wrist RT w scaphoid Today M79.641 - Pain in right hand Patient Instructions: Scribed for Denisse Junior PA-C, by Dawood Guido medical director of hospice, on 06/18/2024 at 12:45 PM EST.? I, Denisse Junior PA-C, have personally reviewed and agree with the information entered by the scribe. Coding Level of Care Code Est Pt Level 3 (87511) Diagnoses Closed nondisplaced fracture of scaphoid of right wrist, unspecified portion of scaphoid, initial encounter S62.001A Encounter type: initial encounter Fracture alignment: nondisplaced Fracture type: closed Scaphoid bone location: unspecified portion of scaphoid
== END 2024-06-18 14:04 | disposition home or self-care (01) ==
PROVIDERS: Visit Provider Physician Assistant
DX: S62.001A Unspecified fracture of navicular [scaphoid] bone of right wrist, initial encounter for closed fracture (principal)
CPT/HCPCS: 99024

== ENCOUNTER 2024-12-22 11:56 | Outpatient (AMB) | payer BC, SELFPAY ==
[2024-12-22 12:19] VITALS: BP 130/80; PULSE 70; TEMP 36.6; O2SAT 100; BMI 25.8
--- NOTE | 2024-12-22 12:19 | AM.OFFWIN_ITS ---
Intake Vital Signs 12/22/24 12:19 Height 5 ft 8 in Weight 170 lb BMI 25.8 BP 130/80 Blood Pressure Location Lt brachial Position Sitting Pulse 70 Pulse Source Pulse Oximeter Temp 97.9 F Temp Source Oral Pulse Oximetry (%) 100 Oxygen Delivery Method Room Air Intake Visit Reasons: EP ? sinus infection Patient Tobacco Use Status: Former Tobacco user Allergies penicillin V Allergy (Unknown, Verified 12/22/24 12:19) hives Sulfa (Sulfonamide Antibiotics) Allergy (Verified 12/22/24 12:19) hives Do you need a note to return to daycare/school/sports/work: No HPI HPI Comments History of Present Illness Details History - The patient is a 49-year-old female pr esenting with symptoms of sinusitis that have persisted for ten days. - Initial management with decongestants was attempted; however, symptoms including sinus pain and nasal congestion have not resolved. - The patient reports thick yellow nasal discharge indicating possible bacterial infection. - Despite experiencing mild night sweats , no significant fever has been noted. - Fatigue is persistent and was preceded by viral illness symptoms such as body aches. - She is unable to tolerate nasal sprays due to induced nausea and has an allergy to penicillin leading to a need for alternative treatment options. Physical Exam General: Cooperative, healthy appearing, comfortable and no acute distress Orientation/consciousness: Patient oriented x3 Limitations: No limitations Head: Normal to inspection Ears: Hearing grossly normal bilaterally, external ears normal, TMs with fluid bilaterally Nose: Normal external nose present, Normal nares present Face and sinus: Normal facial exam, sinuses TTP ethmoid bilat Mouth: Normal oral and palatal mucosa present and moist mucous membranes Throat: Yes tonsils normal, Yes uvula midline. Posterior oropharynx erythema Eyes: Appearance normal, both eyes and all related structures Neck: Normal visual inspection Respiratory: Normal respiratory effort, able to speak in complete sentences, no respiratory distress, not tachypneic, no tripod positioning and no use of accessory muscles Skin: No rashes or lesions noted Neuro: Patient oriented x3 Extremities: Normal to inspection and Yes no clubbing, cyanosis or edema [facility] Medical History Fracture of scaphoid bone of right wrist Social History (Updated 06/18/24 @ 12:50 by Suzette Cordon A) Alcohol intake: current Alcohol intake frequency: holidays/special occasions only Patient Tobacco Use Status: Former Tobacco user Current occupational status: employed 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, 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 Review of Systems Const All systems reviewed & are unremarkable except as noted in HPI and below Physical Exam Vital Signs: Last Vital Signs Temp 97.9 F 12/22/24 12:19 Pulse 70 12/22/24 12:19 BP 130/80 12/22/24 12:19 Pulse Ox 100 12/22/24 12:19 Oxygen Delivery Method Room Air 12/22/24 12:19 BMI result Body Mass Index 25.8 Assessment & Plan Assessment & Plan (1) Sinusitis, acute: Code(s): J01.90 - Acute sinusitis, unspecified Qualifiers: Sinusitis location: ethmoidal Recurrence: non-recurrent Qualified Code(s): J01.20 - Acute ethmoidal sinusitis, unspecified Plan: Management includes cefuroxime 500 mg PO BID for 7 days due to acute sinusitis and the patient's penicillin allergy. The patient is advised to use Benadryl at night and obtained instructions for safe saline nasal rinses. Flonase is contraindicated due to adverse reactions. The prescription arrangements have been completed with no additional documentation required for employment. Patient was informed and verbally consented to the use of an ambient scribe for clinic note documentation during this visit Medications: New cefuroxime axetil 500 mg PO Q12H 14 tabs 0RF Coding Level of Care Code New Pt Level 3 (41624) Diagnoses Acute non-recurrent ethmoidal sinusitis J01.20 Sinusitis location: ethmoidal Recurrence: non-recurrent
--- OUTSIDE RECORDS SUMMARY | 2024-12-22 13:06 | XMS_ITS | Clinical Summary ---
Author Organization [facility] it Address [address] [place] [address] Care Team Providers Care Manager Cost Name Role Phone Prashanth Engel MD Primary Care Pr ovider Allergies Active Allergy Reactions Criticality Noted Date Comments Levofloxacin 08/11/2018 Other Reaction(s): Hives/Urticaria Penicillins Anaphylaxis High 01/01/2007 Other Reaction(s): Hives/Urticaria Sulfa (Sulfonamide Antibiotics) 05/13/2023 Immunizations Name Administration Dates Next Due Hepatitis B (Dpaintt-C-Slata , Recombivax HB-Adult) 19yo and older 07/24/2017,02/13/2017,01/16/2017 Influenza Quadravalent, MDCK , 0.5ml, with preservative (Flucelvax) 6mo and older 07/28/2018 PPD Test 07/30/2018 Tdap Tetanus diptheria acell ular pertussis (Boostrix; Adacel) 7yo and older 01/10/2017,01/21/2007 Tetanus Toxoid, Unspecified 12/14/2016 Surgical History Surgery Date Site/Laterality Comments TUBAL LIGATION PROCEDURE: HISTORICAL TUBAL LIGATION OTHER SURGICAL HISTORY 11/15/2017 PROCEDURE: HYSTEROSCOPY, SURGICAL/LYSIS,LESION; COMMENT: submucosal fibroid - benign for AUB BREAST BIOPSY 2014 Right PROCEDURE: BX BREAST; PERC NEEDLE CORE W/IMAG GUID; COMMENT: b9 COLONOSCOPY 03/08/2022 PROCEDURE: HISTORICAL COLONOSCOPY; COMMENT: tiny hyperplastic polyp and diverticulosis Medical History Medical History Date Comments Abnormal mammogram DX:Abnormal m ammogram; COMMENT: tagged area of right breast at [facility] 2015, benign bx Family History Medical History Relation Name Comments No Known Problems Brother 1 No Known Problems Brother 2 No Known Problems Daughter Alexxis Prostate cancer Father No Known Problems Maternal Grandfather di ed from pneumonia at prison Hypertension Maternal Grandmother hyperch olesterol Heart attack Mother CVA, CAD, colon polyps Colon cancer Paternal Grandfather Breast cancer Paternal Grandmother 50s No Known Problems Sister No Known Problems Son Balise Blindness Neg Hx Cataracts Neg Hx Colon cancer Neg Hx Glaucoma Neg Hx Kidney cancer Neg Hx Macular degeneration Neg Hx Ovarian cancer Neg Hx Strabismus Neg Hx Uterine cancer Neg Hx Relation Name Status Comments Brother 1 Alive Brother 2 Alive Daughter Alexxis Alive Father Alive Maternal Grandfather Maternal Grandmother Mother Alive Paternal Grandfather Paternal Grandmother 50s Sister Alive Son Balise Alive Social History Tobacco Use Types Packs/Day Years Used Date Smoking Tobacco: Former Cigarettes Q uit: 01/21/1995 Smokeless Tobacco: Never Alcohol Use Standard Drinks/Week Comments Yes 0 (1 standard drink = 0.6 oz pur e alcohol) Comments Unknown Sex and Gender Information Value Date Recorded Sex Assigned at Not on file Legal Sex Female 9:35 AM EST Gender Identity Not on file Sexual Orientation Not on file Obstetrics History Last Filed Vital Signs Vital Sign Reading Time Taken Comments Blood Pressure 117/78 11/18/2023 11:51 AM EST Pulse 89 11/18/2023 11:51 AM EST Temperature - - Respiratory Rate - - Oxygen Saturation - - Inhaled Oxygen Concentration - - Weight 76 kg (167 lb 9.6 oz) 11/18/2023 11:51 AM EST Height 172.7 cm (5' 8 ) 11/18/2023 11:51 AM EST Body Mass Index 25.48 11/18/2023 11:51 AM EST Plan of Treatment Upcoming Encounters Date Type Department Care Team (Late st Contact Info) Description 08/26/2025 8:30 AM EDT Appointment Radiology Department - [address] [phone] Health Maintenance Due Date Last Done Comments Depression Screening 10/13/2022 HIV Screening 10/13/2022 Social Influencers of Health Screening 10/13/2022 Pneumococcal Vaccine: 50+ Years (1 of 1 - PCV) 2023 Zoster Vaccines (1 of 2) 2023 COVID-19 Vaccine ( season) 2024 11/24/2020, 11/03/2020 Influenza Vaccine (#1) 2024 07/28/2018 Breast Cancer Screening 08/07/2026 08/07/20, 08/07/2024, 07/29/2023, Additional history exists DTaP,Tdap,and Td Vaccines (3 - Td or Tdap) 01/10/2027 01/10/2017, 01/21/2007 Cholesterol Screening (Lipid Panel) 05/15/2028 05/15/2023 Cervical Cancer Screening: HPV 11/18/2028 11/18/2023 Colorectal Cancer Screening: Colonoscopy 03/08/2032 03/08/2022 Hepatitis B Vaccines Completed 07/24/2017, 02/13/2017, 01/16/2017 Hepatitis C Screening Completed 05/15/2023 HIB Vaccines Aged Out No longer eligi ble based on patient's age to complete this topic HPV Vaccines Aged Out No longer eligi ble based on patient's age to complete this topic Hepatitis A Vaccines Aged Out No long er eligible based on patient's age to complete this topic IPV Vaccines Aged Out No longer eligi ble based on patient's age to complete this topic MMR Vaccines Aged Out No longer eligi ble based on patient's age to complete this topic Meningococcal ACWY Vaccine Aged Out N o longer eligible based on patient's age to complete this topic Meningococcal B Vacine Aged Out No lo nger eligible based on patient's age to complete this topic Pneumococcal Vaccine: Pediatrics (0 to 5 Years) and At-Risk Patients (6 to 64 Years) Aged Out No longer eligible based on patient's age to complete this topic RSV Immunization Patients Under 20 months Aged Out No longer eligible based on patient's age to complete this topic Varicella Vaccines Aged Out No longer eligible based on patient's age to complete this topic Procedures Procedure Name Priority Date/Time Associated Diagnosis Comments SCREENING MAMMOGRAPHY BI 2-VIEW BREAST INC CAD Routine 08/07/2024 10:13 AM EDT Encounter for screening mammogram for malignant neoplasm of breast HPV Routine 11/18/2023 HEPATITIS C SCREENING Routine 05/15/2023 LIPID PANEL Routine 05/15/2023 HM COLONOSCOPY Routine 03/08/2022 from Last 3 Months or Most Recently Relevant to Health Maintenance Results * SCREENING MAMMOGRAPHY BI 2-VIEW BREAST INC CAD (08/07/2024 10:13 AM EDT) Anatomical Region Laterality Modality Radiographic Gaye ging 07/29/2023 10:4 2 AM EDT Narrative 08/07/2024 11:35 AM EDT This is a summary report. The complete report is available in the patient's medical record. If you cannot access the medical record, please contact the sending organization for a detailed fax or copy. Bilateral screening mammography: Bilateral digital tomosynthesis mammography was reviewed with computer aided detection and compared to previous. ??The breast tissue remains heterogeneously dense, limiting the sensitivity of mammography. ??There is a pair of nodular densities in the retroareolar right breast centered slightly above and lateral to the nipple. ??These were not present on the most recent prior mammograms. ??We will contact the patient to return for a limited right breast ultrasound for further evaluation. ??There have been no other significant interval changes. Impression: New nodular densities on the right. BI-RADS Category 0, needs additional imaging evaluation. Breast density: The breasts are heterogeneously dense, which may obscure small masses. Location: [facility], [address] [place] [address], [id number], [phone] Procedure Note Jcarlos Villarreal MD - 09/28/2024 This is a summary report. The complete report is available in thepatient's medical record. If you cannot access the medical record, pleasecontact the sending organization for a detailed fax or copy. Bilateral screening mammography: Bilateral digital tomosynthesismammography was reviewed with computer aided detection and compared toprevious. The breast tissue remains heterogeneously dense, limiting thesensitivity of mammography. There is a pair of nodular densities in theretroareolar right breast centered slightly above and lateral to thenipple. These were not present on the most recent prior mammograms. Wewill contact the patient to return for a limited right breast ultrasoundfor further evaluation. There have been no other significant intervalchanges. Impression: New nodular densities on the right. BI-RADS Category 0, needs additional imaging evaluation. Breast density: The breasts are heterogeneously dense, which may obscuresmall masses. Location: [facility], [address] [place] [address], [id number], [phone] Result [facility] Prashanth Engel MD IMG XR PROCEDURE S Final Result * Cervical Cancer Screening: HPV (11/18/2023) [facility] Cervical Cancer Screening: HPV Negative, Abstracted Result [facility] Provider HEALTH MAINTENANCE Final Result * Hepatitis C Screening (05/15/2023) [facility] Hepatitis C Screening Abstracted Result [facility] Provider HEALTH MAINTENANCE Final Result * (ABNORMAL) Lipid panel (05/15/2023) [facility] LDL/HDL Ratio 3 0 - 4 Triglycerides 99 0 - 150 mg/dL Cholesterol 206(A) 0 - 200 mg/dL HDL 73 >=40 mg/dL LDL Cholesterol 114(A) 0 - 100 mg/dL Blood Venous blood specimen / Unknown Result [facility] Provider LAB BLOOD ORDERABLES Raquel l Result * Colonoscopy (03/08/2022) [facility] Colonoscopy No interpretation , Abstracted Anatomical Region Laterality Modality Other Result [facility] Provider HEALTH MAINTENANCE Final Result from Last 3 Months or Most Recently Relevant to Health Maintenance Care Teams Manager Cost Relationship Specialty Start Date End Date Prashanth Engel MD PCP - General 12/10/22
== END 2024-12-22 12:42 | disposition home or self-care (01) ==
PROVIDERS: PCP Family Medicine; Visit Provider Physician Assistant
DX: J01.20 Acute ethmoidal sinusitis, unspecified (principal)

== ENCOUNTER → 2024-12-22 11:56 | Outpatient (BNVA) | payer BC, SELFPAY | PROVIDERS: PCP Family Medicine ==